=== PATIENT | female | born 1970 | race African-American/Black ===

== ENCOUNTER 2018-03-25 23:48 | Emergency (ER) | payer MEDICAID ==
[~2018-03-25] VITALS: Ht 160 cm; Wt 82.0 kg
[~2018-03-25 23:48] MED LIST: ALBUTEROL
[2018-03-26] MEDS ORDERED: KETOROLAC 60MG/2ML VIAL IM ONE (02:45)
[2018-03-26 03:29] VITALS: BP 146/94
== END 2018-03-26 03:31 | disposition home or self-care (01) ==
LOC: ER 23:48
DX: S30.0XXA Contusion of lower back and pelvis, initial encounter (principal); F12.10 Cannabis abuse, uncomplicated; Z88.0 Allergy status to penicillin; V43.52XA Car driver injured in collision with other type car in traffic accident, initial encounter; Y93.89 Activity, other specified; Y92.488 Other paved roadways as the place of occurrence of the external cause
CPT/HCPCS: 96372; 99283; J1885; Z7610

== ENCOUNTER 2018-10-08 14:35 | Emergency (ER) | payer MEDICAID ==
[~2018-10-08] VITALS: Ht 165.1 cm; Wt 80.0 kg
[2018-10-08 14:43] VITALS: BP 146/88
== END 2018-10-08 18:05 | disposition left against medical advice (07) ==
LOC: ER 14:43
DX: Z53.21 Procedure and treatment not carried out due to patient leaving prior to being seen by health care provider (principal)